=== PATIENT | female | born 1980 | race Caucasian/White ===

== ENCOUNTER 2022-05-20 08:54 | Emergency (ER) | payer OTHER ==
[~2022-05-20] VITALS: Ht 182.9 cm; Wt 95.3 kg
--- NOTE | 2022-05-20 08:58 | NUR ---
PT BIB SELF FROM HOME WITH C/O SEVERE SCIATIC PAIN ON THE RIGHT LEG THAT RADIATES DOWN TO THE FOOT. 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 HX: NO HEALTH ISSUES TO REPORT. PT IS AAX04, VSS, NAD, BREATHING IS EVEN AND UNLABORED, SKIN INTACT. PT IS AMBULATORY WITH STEADY GAIT, PT IN GOWN. PT PLACED ON RN SOCIAL WORK SHOWING NSR, SAFETY PRECAUTIONS AND COMFORT MEASURES IN PLACE. HOB ELEVADED, SIDE RAILS UP, BED IN LOWEST POSITION, CALL LIGHT WITHIN REACH. PENDING MD SHERWOOD AND ORDERS
--- NOTE | 2022-05-20 09:03 | NUR ---
ED MD AT BEDSIDE EXAMINING THE PT.
[2022-05-20 09:09] VITALS: BP_SYST 170
[2022-05-20] MEDS ORDERED: KETOROLAC TROMETHAMINE 60 MG/2 ML VIAL IM ONE (09:30)
[2022-05-20] MEDS ORDERED: HYDR-3917 PO (09:57)
[2022-05-20] MEDS ORDERED: IBUP-1971 PO (09:57)
[2022-05-20 10:33] VITALS: BP_SYST 133
--- NOTE | 2022-05-20 10:35 | NUR ---
PT MEDICALLY CLEARED FOR D/C. D/C INSTRUCTIONS GIVEN TO PT. PT TO FOLLOW UP WITH PCP WITHIN 1-3 DAYS AND TO RETURN TO ED FOR WORSENING S/S. PT VERBALIZED UNDERSTANDING. PT AAX04, NAD, BREATHING IS EVEN AND UNLABORED, WRISTBAND REMOVED. PT AMBULATORY WITH STEADY GAIT. PT LEFT ED WITH ALL BELONINGS.
== END 2022-05-20 10:36 | disposition home or self-care (01) ==
LOC: SED 08:54
DX: M54.50 Low back pain, unspecified (principal); M79.661 Pain in right lower leg; F12.90 Cannabis use, unspecified, uncomplicated; Z79.899 Other long term (current) drug therapy
CPT/HCPCS: 99283; 81002; 81025; 96372; J1885

== ENCOUNTER 2023-04-05 05:41 | Emergency (ER) | payer OTHER ==
[~2023-04-05] VITALS: Ht 182.9 cm; Wt 97.5 kg
[~2023-04-05 05:41] MED LIST: HYDR-3917 PO; IBUP-1971 PO
[2023-04-05 06:24] VITALS: BP_SYST 135; PULSE 69; RESP 16; TEMP 97.7; O2SAT 99
[2023-04-05 06:36] LABS: COVID19 ANTIGEN SOFIA FIA NEGATIVE (NEGATIVE)
[2023-04-05 06:38] LABS: INFLUENZA TYPE A Negative (NEGATIVE); INFLUENZA TYPE B NEGATIVE (NEGATIVE)
[2023-04-05] MEDS ORDERED: ALBMDI INH (07:59)
[2023-04-05] MEDS ORDERED: IBUP-1969 PO (07:59)
[2023-04-05] MEDS ORDERED: LEVO-62 PO (07:59)
[2023-04-05 08:11] VITALS: BP_SYST 127; PULSE 73; RESP 18; TEMP 98; O2SAT 100
== END 2023-04-05 08:08 | disposition home or self-care (01) ==
LOC: SED 05:41
DX: J18.9 Pneumonia, unspecified organism (principal); Z20.822 Contact with and (suspected) exposure to COVID-19; Z79.899 Other long term (current) drug therapy
CPT/HCPCS: 36415; 71045; 99284

== ENCOUNTER 2023-07-09 01:51 | Emergency (ER) | payer OTHER ==
[~2023-07-09] VITALS: Ht 182.9 cm; Wt 99.8 kg
[~2023-07-09 01:51] MED LIST changes: +ALBMDI INH; +IBUP-1969 PO; +LEVO-62 PO
[2023-07-09 02:01] VITALS: BP_SYST 120; PULSE 103; RESP 20; TEMP 97.8; O2SAT 100
[2023-07-09] MEDS ORDERED: GENT5DRO22 RIGHT EYE (03:13)
[2023-07-09 03:29] VITALS: BP_SYST 153; PULSE 107; RESP 20; TEMP 98; O2SAT 100
== END 2023-07-09 03:33 | disposition home or self-care (01) ==
LOC: SED 01:51
DX: H10.89 Other conjunctivitis (principal); Z79.899 Other long term (current) drug therapy
CPT/HCPCS: 99283

== ENCOUNTER 2023-12-26 17:25 | Inpatient (IN) | payer OTHER ==
[~2023-12-26] VITALS: Ht 182.9 cm; Wt 95.7 kg
[~2023-12-26 17:25] MED LIST changes: +GENT5DRO23 RIGHT EYE
--- NOTE | 2023-12-26 17:35 | NUR ---
Placed in room 08 . Placed on environmental science technician, blood pressure machine and pulse oximeter. To gown for exam. Side rails up. Report given to LIMA CAMPOS.
[2023-12-26 17:36] VITALS: BP_SYST 129; PULSE 125; RESP 18; TEMP 100.3; TEMP 98.7; O2SAT 94
--- NOTE | 2023-12-26 18:15 | NUR ---
PT COMES INTO ER C/O SWELLING R NECK, UNDERARM PAIN. ALSO REPORTS HAND NUMBNESS, BLE +2 PITTING EDEMA. PT IS TACHYCARDIC AND C/O DYSPNEA. PT ORAL TEMP 100.3. PT STATES HER NECK HAS BEEN SWELLING AND PAIN x3 DAYS. PT STATES THE R LEG HAS BEEN SWELLING FOR x1 WK. PT DENIES ANY CONTACT WITH INSECT OR BEING BITTEN. PT STATES SHE JUST BEEN FEELING SICK LAST FEW DAYS. NKA. MOTHER AT BEDSIDE.
--- NOTE | 2023-12-26 18:21 | NUR ---
ER at bedside examining patient.
--- NOTE | 2023-12-26 18:43 | NUR ---
BLOOD CULTURES DRAWN
--- NOTE | 2023-12-26 18:43 | NUR ---
# 20 gauge angiocath placed to LAC. Use of asceptic technique. Opsite placed over site. Blood return noted. Blood for lab drawn from site. Flushed with 10 cc of normal saline. No evidence of infiltration noted. Patient tolerated well.
--- NOTE | 2023-12-26 18:52 | NUR ---
Urine specimen collected and sent to lab.
--- NOTE | 2023-12-26 18:53 | NUR ---
Urine HCG done, results negative
[2023-12-26] MEDS: NACL 0.9% 1,000 ML IV ONE (18:56)
[2023-12-26] MEDS: VANCOMYCIN HCL 1,000 MG in NS 250 ML IV ONE (18:59)
[2023-12-26] MEDS ORDERED: VANCOMYCIN HCL 1000 MG/VIAL IV ONE ×2 (18:59)
[2023-12-26 19:01] LABS: BASOPHILS # (AUTO) 0.4 K/uL (0.0-0.2); BASOPHILS % (AUTO) 2.8 % (0.0-2.0); EOSINOPHILS % (AUTO) 0.4 % (0.0-4.0); HEMATOCRIT 40.3 % (36-48); HEMOGLOBIN 13.1 g/dL (12.0-16.0); LYMPHOCYTES # (AUTO) 1.6 K/uL (1.0-5.5); MEAN CORPUSCULAR HEMOGLOBIN 27 pg (27-31); MEAN CORPUSCULAR HGB CONC 33 % (32-36); MEAN CORPUSCULAR VOLUME 84 fL (79.0-98.0); MONOCYTES # (AUTO) 1.2 K/uL (0.0-1.0); NEUTROPHILS # (AUTO) 9.9 K/uL (1.8-7.7); NEUTROPHILS % (AUTO) 75.8 % (40.0-70.0); PLATELET COUNT (AUTO) 302 K/uL (130-430); RED BLOOD CELL COUNT(AUTO) 4.83 MIL/uL (4.2-6.2); RED CELL DISTRIBUTION WIDTH 14.8 % (9.0-15.0); WHITE BLOOD COUNT (AUTO) 13.1 K/uL (4.8-10.8)
--- NOTE | 2023-12-26 19:12 | NUR ---
Report given to BHUMI Fernandes for contunity of care
[2023-12-26 19:14] LABS: ALBUMIN 2.7 g/dL (3.4-4.8); BILIRUBIN,DIRECT 0.4 mg/dL (0.0-0.3); CALCIUM 8.6 mg/dL (8.4-11.0); CREATININE 0.83 mg/dL (0.55-1.30); POTASSIUM 3.6 mmol/L (3.5-5.1); TOTAL BILIRUBIN 1.4 mg/dL (0.0-1.0); TOTAL PROTEIN, SERUM 6.9 g/dL (6.4-8.3)
--- NOTE | 2023-12-26 19:22 | NUR ---
REPORT RECEIVED FROM DAIANA TRIPATHI.
--- NOTE | 2023-12-26 19:25 | NUR ---
PT REPORTS SHE FEELS SOB, O2 92% ON RA. MD NOTIFIED, PLACED PT ON 2L NC. SAFETY PRECAUTIONS IN PLACE.
[2023-12-26 19:27] LABS: BILIRUBIN,URINE NEGATIVE (NEGATIVE); BLOOD, URINE NEGATIVE (NEGATIVE); COLOR,URINE YELLOW (YELLOW); GLUCOSE,URINE NEGATIVE (NEGATIVE); KETONES,URINE NEGATIVE (NEGATIVE); LEUKOCYTE ESTERASE ,URINE NEGATIVE (NEGATIVE); NITRITE, URINE NEGATIVE (NEGATIVE); PROTEIN URINE TRACE (NEGATIVE)
[2023-12-26 19:38] LABS: CLARITY/URINE SLIGHTLY HAZY (CLEAR)
[2023-12-26] MEDS: ACETAMINOPHEN 500 MG TABLET PO ONE (19:46)
[2023-12-26 19:48] LABS: BACTERIA,URINE FEW /HPF (None Seen); MUCUS,URINE None Seen /LPF (None Seen); RBC,URINE NONE SEEN /HPF (0-3); WBC,URINE 0-3 /HPF (0-3)
[2023-12-26] MEDS: MEROPENEM 500 MG IVPB PREMIX 50 ML IV ONE (21:00)
--- NOTE | 2023-12-26 21:20 | NUR ---
Admit bed requested Patient will be admitted to care of . Admitted to MEDSURG unit. Diagnosis PNEUMONIA Inpatient (Yes or No) Y Observation (Yes or No) N Orientation concerns or request close to nursing station (Yes or No) N Covid Status N On vent or bipap N Isolation requirements N Needs a sitter N From Home (Yes or if No enter name of facility) Y Requires Dialysis (Yes or No) N Med Rec Completed (Yes of No) PENDING
[2023-12-26] MEDS: cefTRIAXone 1 GM IVPB PREMIX 50 ML IV SCH (22:00)
--- NOTE | 2023-12-26 22:18 | NUR ---
Patient will be admitted to care of [facility]. Admitted to MEDSURG unit. Will go to room 133. Belongings list completed. Complete and up to date summary report printed. SBAR report to be given at bedside TO CHERI TRIPATHI with opportunity for questions.
--- NOTE | 2023-12-26 22:30 | NUR ---
PT IS FROM HOME FOR NECK PAIN, FEVER AND DIFFICULTY OF BREATHING SINCE MONDAY. PT IS ON ROOM AIR, AMBULATORY, NO PAIN REPORTED. NURSING CARE IS CONTINUE.
[2023-12-26 23:00] VITALS: BP_SYST 134; PULSE 112; RESP 20; TEMP 98
[2023-12-26 23:13] VITALS: O2SAT 98
[2023-12-26 23:24] VITALS: BP_SYST 143; PULSE 111; RESP 20; TEMP 98; O2SAT 98
[2023-12-27 00:24] LABS: ABG O2 SAT% ESTIMATE 96.8 % (94.0-98.0); BLOOD GAS BASE EXCESS -0.8 mmol/L (-2.0-3.0); BLOOD GAS HCO3 20.9 mmol/L (21.0-28.0); BLOOD GAS PCO2 26.8 mmHg (32.0-45.0); BLOOD GAS PO2 79.1 mmHg (83.0-108.0)
[2023-12-27 00:25] LABS: ALLEN'S TEST YES (P)
--- NOTE | 2023-12-27 02:00 | NUR ---
PT ASKING FO SOME SNACK, PT ON REGULAR DIET. ITEM WAS GIVEN TO THE PATIENT
[2023-12-27] MEDS: ACETAMINOPHEN 325 MG TABLET PO PRN (04:08)
--- NOTE | 2023-12-27 04:15 | NUR ---
PT REPORTING FOR SOME PAIN IN THE RIGHT ARM, FEEL LIKE STABBING, PAIN 08/01. NURSE CHECK PRN MEDS.
[2023-12-27 04:31] VITALS: BP_SYST 133; PULSE 126; RESP 20; TEMP 98.6; O2SAT 98
--- NOTE | 2023-12-27 04:53 | NUR ---
PT ASKING FOR ICE PAD, ITEMS ARE GIVEN.
--- NOTE | 2023-12-27 08:00 | NUR ---
OPENING NOTE: PATIENT IS RESTING IN BED. PATIENT BREATHING ON 2L 02 NASAL CANNULA. CALL LIGHT IS WITHIN REACH
[2023-12-27] MEDS ORDERED: cefTRIAXone 1 GM VIAL IV SCH (09:00)
[2023-12-27] MEDS ORDERED: AZITHROMYCIN 250 MG in NS 250 ML IV SCH (09:00)
[2023-12-27] MEDS: cefTRIAXone 1 GM IVPB PREMIX 50 ML IV SCH (09:47)
[2023-12-27] MEDS: AZITHROMYCIN 250 MG in NS 250 ML IV SCH (10:17)
[2023-12-27 10:21] VITALS: BP_SYST 135; PULSE 119; RESP 20; TEMP 96.9; O2SAT 98
[2023-12-27 11:40] VITALS: BP_SYST 111; PULSE 126; RESP 18; TEMP 97.2; O2SAT 100
--- NOTE | 2023-12-27 11:50 | NUR ---
OVERHEAD PAGED DR ASIF
[2023-12-27 12:00] VITALS: O2SAT 98
--- NOTE | 2023-12-27 13:30 | NUR ---
PAGED DR ASIF AND LEFT MESSAGE , WAITING FOR CALL BACK
[2023-12-27] MEDS ORDERED: traMADol HCL HCL 50 MG TABLET (ULTRAM) PO PRN (13:45)
--- NOTE | 2023-12-27 14:06 | NUR ---
AMA NOTE: PATIENT WANTS TO LEAVE WITHOUT SEEING THE PHYSICIAN. PATIENT SAID SHE WILL GO TO ANOTHER HOSPITAL. PATIENT TOOK ALL BELONGINGS. IV AND ARM BAND ARE REMOVED. PATIENT WILL WAIT IN THE LOBBY FOR HER RIDE TO GO HOME. DOCTOR INFORMED
== END 2023-12-27 14:00 | disposition left against medical advice (07) | DRG 139 ==
LOC: SED 17:25 → SMU 21:11
PROVIDERS: ADMIT Specialist; ATTEND Specialist
DX: J18.9 Pneumonia, unspecified organism (principal); L03.221 Cellulitis of neck; Z20.822 Contact with and (suspected) exposure to COVID-19; Z53.29 Procedure and treatment not carried out because of patient's decision for other reasons; Z79.899 Other long term (current) drug therapy
CPT/HCPCS: 36415; 36600; 71045; 80048; 80076; 81000; 81001; 81015; 82803; 83605; 85025; 87040; 93005; 96365; 99285; J0456; J0696; J2185; J3370; J7050